=== PATIENT | female | born 1970 | race Caucasian/White ===

== ENCOUNTER 2021-03-13 10:42 | Emergency (ER) | payer OTHER ==
[2021-03-13 11:59] LABS: BASOPHIL 0.2 % (0-2); EOSINOPHIL 0.5 % (0-5); HCT 43.3 % (37.0-47.0); HGB 14.3 g/dl (12.5-16.0); LYMPHOCYTE 28.3 % (15-48); MCV 93.7 fL (78.0-100.0); MONOCYTE 8.7 % (0-12); MPV 9.7 fL (6.0-9.5); NRBC 0; PLT 261 K/uL (150-400); RBC 4.62 M/uL (4.20-5.40); RDW 12.7 % (11.5-14.0); WBC 6.5 K/uL (4.0-10.5)
[2021-03-13 12:10] LABS: INR 0.97 (0.9-1.2); PROTHROMBIN TIME 12.3 SECONDS (11.8-13.4); PTT 24.7 SECONDS (24.4-34.7)
[2021-03-13 12:24] LABS: ALBUMIN 3.9 g/dL (3.4-5.0); BILIRUBIN - TOTAL 0.4 mg/dL (0.2-1.0); BUN/CREAT RATIO (CALC) 17.2 RATIO; CREATININE 0.64 mg/dL (0.51-0.95); POTASSIUM 3.8 mmol/L (3.5-5.1); TOTAL PROTEIN 7.9 g/dL (6.4-8.2)
== END 2021-03-13 12:55 | disposition other institution (70) ==
LOC: FER 10:42
PROVIDERS: Emergency Medicine
DX: I61.8 Other nontraumatic intracerebral hemorrhage (principal); G93.6 Cerebral edema; U07.1 COVID-19; F17.210 Nicotine dependence, cigarettes, uncomplicated; Z88.1 Allergy status to other antibiotic agents
CPT/HCPCS: 36415; 70450; 80053; 85025; 85610; 85730